=== PATIENT | male | born 1975 | race Caucasian/White ===

== ENCOUNTER 2016-08-17 16:32 | Emergency (ER) | payer OTHER ==
[~2016-08-17] VITALS: Ht 177.8 cm; Wt 84.1 kg
[2016-08-17 16:34] VITALS: BP 144/93; PULSE 102; RESP 18; O2SAT 100
--- NOTE | 2016-08-17 16:49 | ED.REPORT ---
HPI-Chest Pain 40 and Over Date of Service Aug 17, 2016 ED Provider: Khai Zelaya MD Pt is a healthy 41 y/o male presenting to the ED c/o sharp substernal CP onset 3 days ago. His pain is exacerbated by deep breathing and bending/twisting movements. Pt denies cough, hemoptysis, fever, nausea, vomiting. He has no history of PE or DVT, denies long periods of immobilization, recent surgeries, lower extremity pain or swelling. His pain is not exertional. He called his PCP who told him to come to the ED. He is declining pain medication at this time. He incidentally reports a fine tremor of his arms. Nursing Notes Stated Complaint: CHEST PAIN Chief Complaint: Chest Pain Nursing Notes Reviewed: Yes Allergies: Coded Allergies: No Known Allergies (Unverified , 08/17/16) Scheduled Azithromycin (Zithromax (Z-Aris)) 250 Mg Tablet 250 MG PO DIRECTED Take two tablets by mouth on day 1, then take one tablet daily on days 2 through 5. General Time Seen by MD: 16:39 Chief Complaint Chest pain Hx Obtained From: Patient Arrived By: Walk-in Sudden in Onset?: No Onset Occurred: 3 days ago Symptom Duration: Since onset Location: : Substernal Quality: Painful Radiation: : Does not radiate Severity: Current: Moderate Severity: Maximum: Moderate Exacerbated by: Deep breath, Movement Past Medical History Past Medical History Denies Past Surgical History None reported Smoking History Unknown if Ever Smoker Ambulatory Status Independent Review of Systems Constitutional: Denies: Chills, Fever Respiratory: Reports: Pleuritic pain, Denies: Hemoptysis, Non-productive cough, Shortness of breath Cardiovascular: Reports: Chest pain, Denies: Dyspnea on exertion GI: Denies: Abdominal pain, Nausea, Vomiting Musculoskeletal: Denies: Extremity pain, Extremity swelling Complete sys rev & neg: except as marked. Physical Exam Initial Vital Signs Vital Signs (First) Date Time Temp Pulse Resp B/P Pulse Ox O2 Delivery O2 Flow Rate FiO2 08/17/16 16:34 36.8 102 18 144/93 100 Room Air Initial VS: Reviewed, Vital signs abnormal Head / Eyes: Atraumatic, Normocephalic, PERRL ENT: Mucous membranes moist, Conjunctiva normal, No scleral icterus Neck: Supple, Full range of motion Extremities: Vascular intact, Neuro intact, No swelling Skin: Warm, Dry, No cyanosis Neurologic: Alert, Oriented, Nonfocal Psychiatric: Mood/affect normal, Behavior normal, Normal thought content General/Constitutional: Awake, Alert, No acute distress, Well appearing, Cooperative, Not toxic appearing Respiratory / Chest: Breath sounds NL, Breath sounds = bilat, No respiratory distress, No rales, No rhonchi, No wheezing, No retractions, No stridor, No chest tenderness Cardiovascular: Heart rate NL, Regular rhythm, Heart sounds NL, No gallop, No murmurs, No rubs, Cap refill not delayed, Peripheral circulation NL Abdomen: Atraumatic, Soft, Non-tender, No guarding, No rebound, No distention, No palpable mass Interpretation & Diagnostics Lab Results Interpretation Result Diagram: 08/17/160 08/17/16 1650 Test 08/17/16 16:50 White Blood Count 6.2th/mm3 (3.8-10.1) Red Blood Count 4.74mil/mm3 (4.40-5.80) Hemoglobin 14.1g/dL (13.8-17.2) Hematocrit 39.3% (41.0-50.0) Mean Corpuscular Volume 82.9fL (81-100) Mean Corpuscular Hemoglobin 29.7pg (27.0-35.0) Mean Corpuscular Hemoglobin Concent 35.9% (32.0-37.0) Red Cell Distribution Width 12.0% (12.3-15.4) Platelet Count 243bil/L (150-400) Neutrophils (%) (Auto) 66.2% (40-74) Lymphocytes (%) (Auto) 21.2% (14-46) Monocytes (%) (Auto) 9.5% (4-12) Eosinophils (%) (Auto) 2.6% (0-5) Basophils (%) (Auto) 0.3% (0-3) D-Dimer < 0.50mg/L FEU (<0.50) Sodium Level 141mEq/L (134-144) Potassium Level 4.0mEq/L (3.5-5.2) Chloride Level 104mEq/L (97-108) Carbon Dioxide Level 25mmol/L (18-29) Blood Urea Nitrogen 16mg/dL (6-24) Creatinine 1.04mg/dL (0.76-1.27) Estimat Glomerular Filtration Rate 83mL/min (>59) Glucose Level 121mg/dL (60-99) Calcium Level 9.1mg/dL (8.5-10.1) Magnesium Level 1.7mg/dL (1.6-2.6) Total Bilirubin 0.3mg/dL (0.0-1.2) Aspartate Amino Transf (AST/SGOT) 26U/L (0-50) Alanine Aminotransferase (ALT/SGPT) 30U/L (0-44) Alkaline Phosphatase 79U/L (25-150) Troponin T < 0.010ug/L (0.0-0.011) Total Protein 6.9g/dL (6.4-8.4) Albumin 4.3g/dL (3.4-5.0) ECG Interpretation ECG Interpretation: Sinus rhythm rate 91 RBBB No prior available for comparison Time: 17:01 Interpreted by: ED physician X-Ray Chest Interpretation Chest Xray Interpretation: IMPRESSION: 1. Streaky opacity within the right lower lobe suggestive of developing airspace disease such as pneumonia and/or atelectasis. 2. Nodular opacity overlying the mid right upper lobe. It is indeterminate on the basis of this examination whether this is within the pulmonary parenchyma or osseous structures. No priors are available for comparison. CT chest may be obtained on a nonemergent basis or three-month chest x-ray interval followup as indicated for additional evaluation. Dictated by: Pratibha Sy M.D. on 08/17/2016 at 17:24 Approved by: Pratibha Sy M.D. on 08/17/2016 at 17:25 View: Portable, 1 view Interpretation / Wet Read by: Interpret - Radiologist Re-Eval/Medical Decision Med Decision/Clinical Course 41-year-old male with pleuritic chest pain times several days. X-ray possible developing right lower lobe pneumonia. Troponins are negative. D-dimer is negative. We will treat with azithromycin. Return precautions given. Follow-up with primary doctor 1-2 days. Time of Eval: 17:50 Re-Evaluation/Progress Note: Pt rechecked. Informed pt of plan for treatment. Pt understands and agrees with plan for treatment. F/U instructions and RTER warnings given. All questions addressed. Counseled Regarding: Diagnosis, Lab results, Need for follow-up, When/why to return to ED Discharge & Departure Primary Impression: Non-cardiac chest pain Additional Impression: RLL pneumonia Pneumonia type: due to unspecified organism Qualified Code: J18.1 - Lobar pneumonia, unspecified organism Disposition: Home Discharge Condition All VS Reviewed: Yes Condition: Stable Patient Instructions: Bacterial Pneumonia (ED), Chest Pain (ED) Additional Instructions: Labs and EKG today were normal. There is no sign of cardiac involvement. Your chest x-ray showed that you may have a developing pneumonia of the right lower lobe. Take the Z-pack as prescribed for the possible pneumonia. Return to the emergency department for worsening pain, shortness of breath, or for other concerning symptoms. Follow-up with your primary care doctor by the end of the week for a recheck. Referrals: [facility] Scribe Attestation Portions of this note were transcribed by Aguila Gomes. I, Dr. Zelaya personally performed the history, physical exam and medical decision-making; I reviewed and confirmed the accuracy of the information in the transcribed note. Signed by Yury Bernabe, 08/17/16 - 1700 Khai Zelaya MD Aug 17, 2016 16:49 AGUILA GOMES Aug 17, 2016 16:55
[2016-08-17 17:06] LABS: BASOPHILS % (AUTO) 0.3 % (0-3); EOSINOPHILS % (AUTO) 2.6 % (0-5); MONOCYTES % (AUTO) 9.5 % (4-12); Mean Corpuscular Hemoglobin 29.7 pg (27.0-35.0); Mean Corpuscular Volume 82.9 fL (81-100); NEUTROPHILS % (AUTO) 66.2 % (40-74); Platelet Count 243 bil/L (150-400)
[2016-08-17 17:26] LABS: TROPONIN T < 0.010 ug/L (0.0-0.011)
--- NOTE | 2016-08-17 17:27 | DRSVH ---
PROCEDURE: X-RAY CHEST ONE VIEW, PORTABLE ([id number]) INDICATIONS: pain TECHNIQUE: One view of the chest was acquired. COMPARISON: None. FINDINGS: Surgical changes and devices: None. Lungs and pleura: No pleural effusions or pneumothorax. 14 mm nodular opacity is present in the supe rior aspect of the right upper lobe. In addition, there is a streaky opacity within the right lower l obe. Mediastinum: Mediastinal contours appear normal. Heart size is normal. Bones and chest wall: No suspicious bony lesions. Overlying soft tissues appear unremarkable. IMPRESSION: 1. Streaky opacity within the right lower lobe suggestive of developing airspace disease such as pneu monia and/or atelectasis. 2. Nodular opacity overlying the mid right upper lobe. It is indeterminate on the basis of this exami nation whether this is within the pulmonary parenchyma or osseous structures. No priors are available for comparison. CT chest may be obtained on a nonemergent basis or three-month chest x-ray interval followup as indicated for additional evaluation. Dictated by: Pratibha Sy M.D. on 08/17/2016 at 17:24 Approved by: Pratibha Sy M.D. on 08/17/2016 at 17:25
[2016-08-17 17:37] LABS: Magnesium 1.7 mg/dL (1.6-2.6)
[2016-08-17] MEDS ORDERED: AZIT250T4 PO (17:43)
[2016-08-17 18:16] VITALS: BP 136/88; PULSE 84; RESP 15; O2SAT 98
[2016-08-17 18:19] VITALS: BP 136/88; PULSE 84; RESP 15; O2SAT 98
== END 2016-08-17 18:30 | disposition home or self-care (01) ==
LOC: SED 16:32
DX: R07.89 Other chest pain (principal); J18.1 Lobar pneumonia, unspecified organism